=== PATIENT | female | born 1990 | race American Indian/Alaskan Native ===

== ENCOUNTER 2017-11-04 16:11 | Outpatient (CLI) | payer MEDICAID | END 2017-11-04 18:20 | disposition home or self-care (01) | LOC: LAB 16:11 → TRG 18:10 → LAB 18:20 | PROVIDERS: ATTEND Nurse Practitioner Women's Health | DX: O36.0130 Maternal care for anti-D [Rh] antibodies, third trimester, not applicable or unspecified (principal); O48.0 Post-term pregnancy; Z3A.40 40 weeks gestation of pregnancy | CPT/HCPCS: 86850; 86900; 86901; 96372; J2790 ==

== ENCOUNTER 2017-12-12 13:07 | Outpatient (CLI) | payer MEDICAID ==
[2017-12-12 13:56] LABS: Hematocrit 36.7 % (30.3-42.9); Hemoglobin 12.1 gm/dl (10.1-14.3); Mean Corpuscular HGB Conc 33 % (30-34); Mean Corpuscular Hemoglobin 31 pg (28-32); Mean Corpuscular Volume 93 fl (79-97); Platelet Count 155 K/mm3 (140-440); Red Blood Count 3.93 M/mm3 (3.65-5.03); Red Cell Distribution Width 14.8 % (13.2-15.2)
[2017-12-12 14:11] LABS: Bilirubin,Urine NEG (Negative); Blood,Urine NEG (Negative); Color,Urine Yellow (Yellow); Mucus,Urine FEW /HPF; Protein,Urine <15 mg/dL mg/dL (Negative); Urobilinogen,Urine < 2.0 mg/dL (<2.0)
[2017-12-12 14:25] LABS: BUN/Creatinine Ratio 9; Blood Urea Nitrogen 6 mg/dL (7-17); Calcium 8.7 mg/dL (8.4-10.2); Hemolysis Index 30
[2017-12-12] MEDS ORDERED: NACL 0.9% 1000 ML 1,000 ML IV ONE (15:11)
[2017-12-12] MEDS ORDERED: TYLENOL PO ONE (15:12)
[2017-12-12] MEDS ORDERED: ZOFRAN IV ONE (15:14)
--- NOTE | 2017-12-12 15:17 | Emergency Department Report ---
Chief Complaint: Syncope Stated Complaint: SYNCOPE Time Seen by Provider: 12/12/17 14:55 - HPI History of Present Illness: The patient is a 27-year-old female EGA at 33 weeks, with a history of CVA and residual slurred speech, currently at baseline per patient, and who presents for evaluation of abdominal pain and near syncope. The patient states that at 11 AM, about 4 hours prior to my evaluation, she has been sudden onset of severe lightheadedness while at work. She subsequently experienced abdominal pain, suprapubic, sick sinus in severity, crampy in quality, and nausea and vomiting, nonbilious, nonbloody emesis. She denies trauma to the abdomen, headache, paresthesias, motor deficits, neck pain, back pain, chest pain, dyspnea, diarrhea, dysuria, vaginal discharge, vaginal bleeding. - Exam Vital Signs: Vital Signs 12/12/17 13:13 Temperature 93 F L Pulse Rate 93 H Respiratory 18 Rate Blood Pressure 120/81 O2 Sat by Pulse 100 Oximetry Physical Exam: General: well-nourished, well-developed, no acute distress Head: Normocephalic, atraumatic Eyes: normal sclera ENT: Mucous membranes are pale and dry Neck: No neck stiffness, no cervical adenopathy Respiratory: Breath sounds equal bilaterally, no wheezing, rales, or rhonchi Cardio: S1 and S2 present, no murmurs, rubs, gallops, capillary refill is delayed Abdomen: Normoactive bowel sounds, soft abdomen, she will be returned to palpation present, no rigidity, no guarding or rebound tenderness Chest WALL/Back: No tenderness to palpation of the chest wall, no CVA tenderness with percussion Musc: No pitting edema Skin: No rash Neuro: alert oriented x4, normal cognition, mildlly slurred speech normal (at baseline per patient), PERRL, EOM intact, no facial drooping, no uvula or tongue deviation on protrusion, no deficit with rotation of neck or shoulder shrug, no obvious gross motor deficit in the upper or lower extremities with flexion or extension at the shoulder, elbow, wrist, hip, knee, or ankle bilaterally, no obvious gross sensation deficit to crude touch or 2 pt discrimination, 2+ symmetric reflexes on DTR testing, no coordination deficit with [id number] or [id number] testing, Babinski downgoing, romberg negative, patient able to to ambulate without abnormal gait Psych: Normal affect MSE screening note: Focused history and physical exam performed. Due to findings the following was ordered: ED Medical Decision Making - Lab Data Result diagrams: 12/12/17 13:43 12/12/17 13:43 ED Disposition for MSE Clinical Impression: Orthostatic lightheadedness, Acute suprapubic pain Disposition: DC- TO HOME OR SELFCARE Is pt being admited?: No Does the pt Need Aspirin: No Condition: Stable
--- NOTE | 2017-12-12 16:19 | Emergency Department Report ---
ED Syncope HPI - General Chief Complaint: Syncope Stated Complaint: SYNCOPE Time Seen by Provider: 12/12/17 14:55 Source: patient - History of Present Illness Initial Comments: The patient is a 27-year-old female EGA at 33 weeks, with a history of CVA and residual slurred speech, currently at baseline per patient, and who presents for evaluation of abdominal pain and near syncope. The patient states that at 11 AM, about 4 hours prior to my evaluation, she has been sudden onset of severe lightheadedness while at work. She subsequently experienced abdominal pain, suprapubic, 2/10 in severity, crampy in quality, and nausea and vomiting, nonbilious, nonbloody emesis. She denies trauma to the abdomen, headache, paresthesias, motor deficits, neck pain, back pain, chest pain, dyspnea, diarrhea, dysuria, vaginal discharge, vaginal bleeding. Timing/Prior Episodes: other (patient had no syncope episode. Report feeling lightheaded. Denies any loss of consciousness. She was sitting in a chair when this happened) Precipitating Factors: Positive: lightheadedness, nausea Context: sitting Episode Description: patient said that she felt faint/lightheaded. Denies syncope Loss of Consciousness: no loss of consciousness Current Symptoms: back to normal, other (patient with baseline of left-sided weakness from stroke as a toddler. She also has speech difficulty from stroke.) - Related Data Allergies/Adverse Reactions: Allergies No Known Allergies Allergy (Verified 10/08/15 12:41) Home Medications: Ambulatory Orders Ibuprofen [Motrin 600 MG tab] 600 mg PO Q8H PRN #30 tablet 10/18/15 78/Iron/Folate 1/Dha 12/12/17 ED Review of Systems ROS: Stated complaint: SYNCOPE Other details as noted in HPI Constitutional: denies: chills, fever, weakness Eyes: denies: eye pain, eye discharge, vision change ENT: denies: ear pain, throat pain, congestion Respiratory: denies: cough, orthopnea, shortness of breath, SOB with exertion, SOB at rest, stridor, wheezing Cardiovascular: other (patient reports she felt faint and lightheaded but she was sitting down and so she did not fall). denies: chest pain, palpitations, edema, syncope, paroxysmal nocturnal dyspnea Gastrointestinal: nausea, vomiting. denies: diarrhea, constipation, hematemesis , melena, hematochezia Genitourinary: denies: urgency, dysuria, discharge Musculoskeletal: denies: back pain, joint swelling, arthralgia, myalgia Skin: denies: rash, lesions Neurological: abnormal gait (chronic from previous stroke as a toddler), other ( lightheadedness). denies: headache, weakness, numbness, paresthesias, confusion , vertigo Psychiatric: denies: anxiety, depression ED Past Medical Hx - Past Medical History Previous Medical History?: Yes Hx Hypertension: No Hx CVA: Yes (18mos ago-slurred speech,left arm weakness) Hx Congestive Heart Failure: No Hx Diabetes: No Hx Deep Vein Thrombosis: No Hx Renal Disease: No Hx Sickle Cell Disease: No Hx Seizures: No Hx Asthma: No Hx COPD: No Hx HIV: No Additional medical history: CVA at 18mos - Surgical History Past Surgical History?: Yes - Family History Family history: hypertension - Social History Smoking Status: Never Smoker Substance Use Type: None Other Social History: 33 weeks on vitamin regular care. Patient is single and lives with family - Medications Home Medications: Home Medications Medication Instructions Recorded Confirmed Last Taken Type Ibuprofen [Motrin 600 MG tab] 600 mg PO Q8H PRN #30 tablet 10/18/15 12/12/17 08 :00 Rx 78/Iron/Folate 1/Dha 12/12/17 12/12/17 08:00 History ED Physical Exam - General Limitations: No Limitations General appearance: alert, in no apparent distress - Head Head exam: Present: atraumatic, normocephalic, normal inspection, other (normal exam) - Eye Eye exam: Present: normal appearance, PERRL, EOMI. Absent: scleral icterus, conjunctival injection, nystagmus, periorbital swelling, periorbital tenderness Pupils: Present: normal accommodation - ENT ENT exam: Present: normal exam, normal orophraynx, mucous membranes moist, TM's normal bilaterally, normal external ear exam - Neck Neck exam: Present: normal inspection, full ROM, other (no C-spine tenderness). Absent: tenderness, meningismus, lymphadenopathy, thyromegaly - Respiratory Respiratory exam: Present: normal lung sounds bilaterally. Absent: respiratory distress, wheezes, rales, rhonchi, stridor, chest wall tenderness, accessory muscle use, decreased breath sounds, prolonged expiratory - Cardiovascular Cardiovascular Exam: Present: regular rate, normal rhythm, normal heart sounds. Absent: systolic murmur, diastolic murmur - GI/Abdominal GI/Abdominal exam: Present: soft, normal bowel sounds. Absent: distended, tenderness, guarding, rebound, rigid, organomegaly, mass, bruit, pulsatile mass , hernia - Extremities Exam Extremities exam: Present: normal inspection, full ROM, normal capillary refill , other (clubbing, cyanosis or edema. +2 pulses to all extremities and no neurovascular compromise.). Absent: tenderness, pedal edema, joint swelling, calf tenderness - Back Exam Back exam: Present: normal inspection, full ROM, other (ambulates without any difficulties). Absent: tenderness, CVA tenderness (R), CVA tenderness (L), muscle spasm, paraspinal tenderness, vertebral tenderness, rash noted - Neurological Exam Neurological exam: Present: alert, oriented X3, abnormal gait (chronic from deficits at 14-grhyk-hay, patient had CVA.), reflexes normal, other (no gross focal deficit from baseline. Patient is normal baseline neurologically). Absent: motor sensory deficit - Expanded Neurological Exam Expanded Neurological exam: Absent: innattentive, memory loss-remote event, memory loss- recent event, ataxia, receptive aphasia, expressive aphasia, total aphasia, tremor, protecting the airway Patient oriented to: Present: person, place - Psychiatric Psychiatric exam: Present: normal affect, normal mood - Skin Skin exam: Present: warm, dry, intact, normal color. Absent: rash ED Course Vital Signs 12/12/17 12/12/17 12/12/17 13:13 16:30 17:47 Temperature 93 F L 98.4 F Pulse Rate 93 H 66 Respiratory 18 16 20 Rate Blood Pressure 120/81 Blood Pressure 116/78 [Left] O2 Sat by Pulse 100 97 Oximetry Vital Signs 12/12/17 12/12/17 12/12/17 13:13 16:30 17:47 Temperature 93 F L 98.4 F Pulse Rate 93 H 66 Respiratory 18 16 20 Rate Blood Pressure 120/81 Blood Pressure 116/78 [Left] O2 Sat by Pulse 100 97 Oximetry - Reevaluation(s) Reevaluation #1: 12/12/17 17:16 Patient screened and orders for this by Dr. Mortensen after he evaluated patient. She received Zofran 4 mg IV, normal saline 1 L IV bolus and Tylenol 1 g by mouth. Patient says she is feeling better she is able to stand up and walk without any dizziness or feeling of lightheadedness. Denies any nausea. Reports baby is moving appropriately. Reevaluation #2: 12/12/17 17:53 Patient stable. heart tones are 1 54 bpm. Laboratory stable. She says she feels better and she is able to ambulate without any difficulties. Patient received drinking fluids without any nausea or vomiting. Dizziness and nausea with vomiting has resolved. Reevaluation #3: 12/12/17 18:12 Patient discharged from emergency room and on arrival to labor and delivery. I spoke with charge nurse to inform her that patient was on the way. I also discussed patient diagnosis and her treatment while she was in the emergency room. ED Medical Decision Making - Lab Data Result diagrams: 12/12/17 13:43 12/12/17 13:43 Lab Results 12/12/17 12/12/17 12/12/17 Range/Units 13:36 13:43 13:43 WBC 5.0 (4.5-11.0) K/mm3 RBC 3.93 (3.65-5.03) M/mm3 Hgb 12.1 (10.1-14.3) gm/dl Hct 36.7 (30.3-42.9) % MCV 93 (79-97) fl MCH 31 (28-32) pg MCHC 33 (30-34) % RDW 14.8 (13.2-15.2) % Plt Count 155 (140-440) K/mm3 Sodium 138 (137-145) mmol/L Potassium 4.1 (3.6-5.0) mmol/L Chloride 102.9 (98-107) mmol/L Carbon Dioxide 20 L (22-30) mmol/L Anion Gap 19 mmol/L BUN 6 L (7-17) mg/dL Creatinine 0.7 (0.7-1.2) mg/dL Estimated GFR > 60 ml/min BUN/Creatinine Ratio 9 % Glucose 82 (65-100) mg/dL Calcium 8.7 (8.4-10.2) mg/dL HCG, Quant (0-4) mIU/mL Urine Color Yellow (Yellow) Urine Turbidity Clear (Clear) Urine pH 6.0 (5.0-7.0) Ur Specific [place] 1.003 (1.003-1.030) Urine Protein <15 mg/dl (Negative) mg/dL Urine Glucose (UA) Neg (Negative) mg/dL Urine Ketones Neg (Negative) mg/dL Urine Blood Neg (Negative) Urine Nitrite Neg (Negative) Urine Bilirubin Neg (Negative) Urine Urobilinogen < 2.0 (<2.0) mg/dL Ur Leukocyte Esterase Tr (Negative) Urine WBC (Auto) 4.0 (0.0-6.0) /HPF Urine RBC (Auto) 3.0 (0.0-6.0) /HPF U Epithel Cells (Auto) 16.0 H (0-13.0) /HPF Urine Mucus Few /HPF 12/12/17 Range/Units 13:43 WBC (4.5-11.0) K/mm3 RBC (3.65-5.03) M/mm3 Hgb (10.1-14.3) gm/dl Hct (30.3-42.9) % MCV (79-97) fl MCH (28-32) pg MCHC (30-34) % RDW (13.2-15.2) % Plt Count (140-440) K/mm3 Sodium (137-145) mmol/L Potassium (3.6-5.0) mmol/L Chloride (98-107) mmol/L Carbon Dioxide (22-30) mmol/L Anion Gap mmol/L BUN (7-17) mg/dL Creatinine (0.7-1.2) mg/dL Estimated GFR ml/min BUN/Creatinine Ratio % Glucose (65-100) mg/dL Calcium (8.4-10.2) mg/dL HCG, Quant 50747 H (0-4) mIU/mL Urine Color (Yellow) Urine Turbidity (Clear) Urine pH (5.0-7.0) Ur Specific [place] (1.003-1.030) Urine Protein (Negative) mg/dL Urine Glucose (UA) (Negative) mg/dL Urine Ketones (Negative) mg/dL Urine Blood (Negative) Urine Nitrite (Negative) Urine Bilirubin (Negative) Urine Urobilinogen (<2.0) mg/dL Ur Leukocyte Esterase (Negative) Urine WBC (Auto) (0.0-6.0) /HPF Urine RBC (Auto) (0.0-6.0) /HPF U Epithel Cells (Auto) (0-13.0) /HPF Urine Mucus /HPF - EKG Data -: EKG Interpreted by Me (attending physician) EKG shows normal: sinus rhythm (sinus rhythm at 81 bpm) Rate: normal - EKG Data Interpretation: no acute changes - Medical Decision Making ED course: She presents to emergency room with complaints of lightheadedness while she was sitting at her desk at work. She reports that she had a stroke at 18 months which left her with left-sided weakness and speech impairment. Patient reports that she is 33 weeks and gets regular care [facility] and last time they saw her was last Tuesday. She reports her baby is fine and moving. heart tones at 154 bpm . Denies any vaginal bleeding or discharge She had some pelvic cramping which has resolved. Patient received Tylenol 1 g by mouth for pelvic pain which has resolved, she received Zofran 4 mg for nausea and vomiting and she is no longer having these symptoms. She received 1 L normal saline IV and she is able to ambulate without any feeling of fainting, lightheadedness or nausea or vomiting. EKG is stable. Please refer to laboratory section for details on lab. I discussed diagnosis and treatment plan the patient. She is able tolerate oral fluids emergency room without any nausea or vomiting and patient will be discharged from emergency room to go to labor and deliver for OB evaluation Critical care attestation.: If time is entered above; I have spent that time in minutes in the direct care of this critically ill patient, excluding procedure time. ED Disposition Clinical Impression: Light-headed feeling, Dehydration, mild, Nausea and vomiting during Qualifiers: Weeks of gestation: 33 weeks Qualified Code(s): Z3A.33 - 33 weeks gestation of Disposition: DC-01 TO HOME OR SELFCARE Is pt being admited?: No Does the pt Need Aspirin: No Condition: Undetermined Instructions: Lightheadedness (ED), (ED), Acute Nausea and Vomiting ( ED), Abdominal Pain (ED) Additional Instructions: increase her fluid intake to at least 2-3 L of water daily to prevent dehydration Continue with care Referrals: [facility] [Provider Group] - 12/13/17 Forms: Work/School Release Form(ED)
[2017-12-12 19:06] VITALS: BP 127/85
[2017-12-12] MEDS ORDERED: LACTATED RINGERS 500 ML IV ONE (19:28)
== END 2017-12-12 20:00 | disposition home or self-care (01) ==
LOC: ED 13:07 → TRG 13:07 → EDSTATUS 18:28 → TRG 18:31
PROVIDERS: ATTEND Obstetrics & Gynecology
DX: O47.03 False labor before 37 completed weeks of gestation, third trimester (principal); Z3A.33 33 weeks gestation of pregnancy
CPT/HCPCS: 36415; 59025; 80048; 81001; 84702; 85027; 93005; 93010; J2405; J7030

== ENCOUNTER 2018-01-06 07:36 | Emergency (ER) | payer MEDICAID ==
--- NOTE | 2018-01-06 09:53 | Emergency Department Report ---
ED Recheck HPI - General Chief Complaint: Medical Clearance Stated Complaint: BLEEDING FROM Time Seen by Provider: 01/06/18 09:16 Source: patient Mode of arrival: Ambulatory Limitations: No Limitations - History of Present Illness Initial Comments: This is a 27-year-old female here report that she had a baby on 12/28/2017 and she had a which she had anabel removed yesterday a light cycle and she woke up this morning with some bleeding at the scar site. She denies any fever or chills. Denies any pus. She said it bled this coming from the site. She reports moderate amount of blood this morning but now is just drain in minimal. She reports that she is having pain at the site at 8/10 and it sore. She said the doctor saw her yesterday and told her that it was okay for her to be a little swollen. Patient denies any other complaints. She states she placed a pad to the site to stop the bleeding from colon under close otherwise nothing else was done. Complaint: other (patient here for incisional check after having been C- section 9 days ago and had her anabel removed and now she is having some bleeding from site.) -: This morning Initial Visit For: other ( 9 days ago and anabel removed yesterday) Returns Today for: other (request for one checked after started bleeding.) Symptoms Since Prior Visit: improved (but with some bleeding. This is new) Associated Symptoms: abdominal pain (pain at scar). denies: fever, chills, shortness of breath, rash, malaise, [place] Treatments Prior to Arrival: home treatments, other ( dressing) - Related Data Home Medications Medication Instructions Recorded Confirmed Last Taken 78/Iron/Folate 1/Dha 1 tab PO DAILY 12/12/17 12/28/17 12/28/17 09:00 Previous Rx's Medication Instructions Recorded Last Taken Type Ibuprofen [Motrin 600 MG tab] 600 mg PO Q8H PRN #30 tablet 10/18/15 12/12/17 08: 00 Rx Ibuprofen [Motrin] 800 mg PO Q8HR PRN #20 tablet 12/29/17 Unknown Rx oxyCODONE /ACETAMINOPHEN [Percocet 1 tab PO Q6HR PRN #14 tablet 12/29/17 Unknown Rx 5/325] Labetalol [Normodyne TAB] 300 mg PO BID #120 tablet 12/30/17 Unknown Rx NIFEdipine XL [Procardia Xl] 30 mg PO QDAY #30 tablet 01/01/18 Unknown Rx Cephalexin [Keflex] 500 mg PO Q8HR 7 Days #21 cap 01/06/18 Unknown Rx Allergies Allergy/AdvReac Type Severity Reaction Status Date / Time No Known Allergies Allergy Verified 01/06/18 07:39 ED Review of Systems ROS: Stated complaint: BLEEDING FROM Other details as noted in HPI Constitutional: denies: chills, fever Respiratory: denies: cough, orthopnea, shortness of breath, SOB with exertion, SOB at rest, stridor, wheezing Cardiovascular: denies: chest pain, palpitations, edema, syncope Gastrointestinal: denies: nausea, vomiting, diarrhea Genitourinary: denies: urgency, dysuria, hematuria, discharge Musculoskeletal: denies: back pain, joint swelling, arthralgia, myalgia Skin: other (bleeding from scar). denies: rash, lesions Neurological: denies: headache, weakness, numbness, paresthesias ED Past Medical Hx - Past Medical History Hx Hypertension: Yes (PIH) Hx CVA: Yes (18mos ago-slurred speech,left arm weakness) Hx Congestive Heart Failure: No Hx Diabetes: No Hx Deep Vein Thrombosis: No Hx Renal Disease: No Hx Sickle Cell Disease: No Hx Seizures: No Hx Asthma: No Hx COPD: No Hx HIV: No Additional medical history: CVA at 18mos - Surgical History Past Surgical History?: No - Family History Family history: hypertension - Social History Smoking Status: Never Smoker Substance Use Type: None - Medications Home Medications: Home Medications Medication Instructions Recorded Confirmed Last Taken Type Ibuprofen [Motrin 600 MG tab] 600 mg PO Q8H PRN #30 tablet 10/18/15 12/28/17 08:00 Rx 78/Iron/Folate 1/Dha 1 tab PO DAILY 12/12/17 12/28/17 12/28/17 09:00 History Ibuprofen [Motrin] 800 mg PO Q8HR PRN #20 tablet 12/29/17 Unknown Rx oxyCODONE /ACETAMINOPHEN [Percocet 1 tab PO Q6HR PRN #14 tablet 12/29/17 Unknown Rx 5/325] Labetalol [Normodyne TAB] 300 mg PO BID #120 tablet 12/30/17 Unknown Rx NIFEdipine XL [Procardia Xl] 30 mg PO QDAY #30 tablet 01/01/18 Unknown Rx Cephalexin [Keflex] 500 mg PO Q8HR 7 Days #21 cap 01/06/18 Unknown Rx ED Physical Exam - General Limitations: No Limitations General appearance: alert, in no apparent distress - Head Head exam: Present: atraumatic, normocephalic, normal inspection - Eye Eye exam: Present: normal appearance, PERRL, EOMI - ENT ENT exam: Present: normal exam, normal orophraynx, mucous membranes moist - Neck Neck exam: Present: normal inspection, full ROM. Absent: tenderness, lymphadenopathy - Respiratory Respiratory exam: Present: normal lung sounds bilaterally. Absent: respiratory distress, chest wall tenderness - Cardiovascular Cardiovascular Exam: Present: regular rate, normal rhythm, normal heart sounds. Absent: systolic murmur, diastolic murmur - GI/Abdominal GI/Abdominal exam: Present: soft, tenderness (around scar site), normal bowel sounds. Absent: distended, guarding, rigid, organomegaly, mass, bruit, pulsatile mass, hernia - Extremities Exam Extremities exam: Present: normal inspection, full ROM, normal capillary refill. Absent: tenderness, pedal edema, joint swelling, calf tenderness - Back Exam Back exam: Present: normal inspection, full ROM. Absent: tenderness - Neurological Exam Neurological exam: Present: alert, oriented X3, normal gait - Psychiatric Psychiatric exam: Present: normal affect, normal mood - Skin Skin exam: Present: warm, dry, other (patient has scar to pelvic area from C- section and physical. [place] removed yesterday and she is having some bleeding which is read from left pelvic area at the scar site. Scar tender to palpate but no pus noted). Absent: rash - Expanded Skin Exam Expanded Type of lesion: Present: other ( scar) Distribution of rash: other (left pelvic area) Description of rash: Present: tenderness, swelling (mild swelling), other ( small amount of bright red blood). Absent: erythematous, blisters, crusting, discharge, fluctuant, indurated ED Course Vital Signs 01/06/18 07:39 Temperature 98.3 F Pulse Rate 84 Respiratory 18 Rate Blood Pressure 130/88 O2 Sat by Pulse 98 Oximetry - Reevaluation(s) Reevaluation #1: 01/06/18 10:02 Area to scar plan with Hibiclens and normal saline and Steri-Strips applied to left distal end of scar. Sterile dry just and placed site. I called by [facility] and they will see patient. ED Recheck MDM - Medical Decision Making ED course: This is a 27-year-old female who had a 9 days ago by [facility]. She had her anabel removed yesterday in clinic and reports that she got up this morning she had some bleeding from the left side of her scar. She says she was worried so she came in to be checked Patient was seen by myself and evaluated and she has no signs of infection but she has minimal wound dehisced with some bleeding which is bright red from site. Area cleansed and Steri-Strips applied followed by dry dressing. Tetanus vaccine is up-to-date. Left side was called and they will see patient this morning. This was communicated to patient and she voiced understanding and she'll be going to see [facility] upon leaving the emergency room. A/P 1: Status post with animal wound dehisced and small amount of bleeding.: Wound care, Steri-Strips and sterile gauze dressing Educated in acute wound care and signs of infection. I discussed the patient although she doesn't have an infection R on some Keflex for prophylaxis reason. She voiced understanding. Patient discharged home in stable condition, vital signs are stable and she is nontoxic. She is afebrile and she is on route to [facility] [employer] and prescription given for Keflex and I also told her she should take Tylenol instead of Motrin. Critical care attestation.: If time is entered above; I have spent that time in minutes in the direct care of this critically ill patient, excluding procedure time. ED Disposition Clinical Impression: Wound dehiscence, surgical Qualifiers: Encounter type: initial encounter Qualified Code(s): T81.31XA - Disruption of external operation (surgical) wound, not elsewhere classified, initial encounter Disposition: DC-01 TO HOME OR SELFCARE Is pt being admited?: No Does the pt Need Aspirin: No Condition: Stable Instructions: Wound Dehiscence (ED) Additional Instructions: Please give affected area clean and dry. Please proceed to [facility] [employer] when you leave emergency room . I spoke with them and they're expecting you See discharge instruction in acute wound care Take Keflex antibiotic Prescriptions: Cephalexin [Keflex] 500 mg PO Q8HR 7 Days #21 cap Referrals: FARRAH GRIFFITHS MD [Primary Care Provider] - 2-3 Days [facility], [facility] [Provider Group] - [place]
[2018-01-06 10:59] VITALS: BP 118/89
== END 2018-01-06 10:58 | disposition home or self-care (01) ==
LOC: ED 07:36
DX: T81.31XA Disruption of external operation (surgical) wound, not elsewhere classified, initial encounter (principal); I10 Essential (primary) hypertension; Y83.8 Other surgical procedures as the cause of abnormal reaction of the patient, or of later complication, without mention of misadventure at the time of the procedure
CPT/HCPCS: 99282